=== PATIENT | female | born 1940 | race Caucasian/White ===

== ENCOUNTER 2016-04-26 15:29 | Emergency (ER) | payer MEDICARE ==
[2016-04-26 16:04] LABS: ABSOLUTE NEUTROPHIL COUNT 5.3 K/mm3 (1.8-7.7); BASO # 0.1 K/mm3 (0.0-0.2); BASO % 0.8 % (0.2-1.0); EOS # 0.2 (0.0-0.5); EOS % 1.9 % (0.9-2.9); HEMATOCRIT 42.2 % (37.0-47.0); HEMOGLOBIN 14.2 gm/l (12.0-16.0); IMM NEUT% 0.3 % (0-1); LYMPH # 1.7 (1.0-4.8); LYMPH % 21.3 % (15-45); MEAN CELL VOLUME 93.2 fl (81.0-99.0); MEAN CORPUSCULAR HEMOGLOBIN 31.3 pg (27.0-31.0); MEAN CORPUSCULAR HGB CONC 33.6 g/dl (33.0-37.0); MEAN PLATELET VOLUME 10.8 fl (7.4-10.4); MONO # 0.7 (0.0-0.8); MONO % 8.8 % (4-12); NEUT % 66.9 % (43-75); PLATELET COUNT 263 K/mm3 (130-400); RED CELL DISTRIBUTION WIDTH 11.9 % (11.5-14.5)
[2016-04-26 16:10] LABS: TROPONIN I < 0.01 ng/ml (0.0-0.06)
[2016-04-26 16:14] LABS: ALB/GLOB RATIO 1.1 (>1.0); CALCIUM 9.6 mg/dL (8.6-10.3)
[2016-04-26] MEDS ORDERED: METOPROLOL TARTRATE 1 MG/ML 5ML VIAL ONE (16:16)
[2016-04-26 16:35] LABS: CKMB ISOENZYME 2.8 ng/ml (0.6-6.3)
[2016-04-26] MEDS ORDERED: KETAMINE HCL 50 MG/1 ML 10ML VIAL ONE (17:35)
[2016-04-26] MEDS ORDERED: PROPOFOL 20 ML IV ONE (17:35)
[2016-04-26] MEDS ORDERED: SODIUM CHLORIDE 0.9% 250 ML IV ONE (17:36)
[2016-04-26] MEDS ORDERED: ONDANSETRON 4 MG/2ML 2 ML VIAL ONE (18:06)
== END 2016-04-26 15:32 | disposition home or self-care (01) ==
LOC: ED 15:29
DX: I48.91 Unspecified atrial fibrillation (principal); I10 Essential (primary) hypertension; F17.210 Nicotine dependence, cigarettes, uncomplicated